=== PATIENT | male | born 1980 | race Caucasian/White ===

== ENCOUNTER → 2016-07-19 | Outpatient (CLI) | payer OTHER ==
[~2016-07-19] MED LIST: ALBU17IN INH; ALBU83IN INH; ARNU1INH IN; GABA300C3 PO; IBUP60TA PO; MELA5TAB14 PO; MOBI15TA PO; PROA1AER IN; TIZA4CAP3 PO; VITA500046 PO; VITA50TA43 PO
--- NOTE | 2016-08-11 01:04 | ECWPNPC ---
PATIENT NAME: MANSI ERNST : 1980 GENDER: MALE VISIT DATE: 07/19/2016 DISCHARGE DATE: 07/19/16 1113 VISIT LOCKED DATE TIME: PHYSICIAN: REFUGIO GRAMAJO RESOURCE: REFUGIO GRAMAJO REASON FOR APPOINTMENT 1. POST PROCEDURE-BACK HISTORY OF PRESENT ILLNESS HISTORY OF PRESENT ILLNESS: PAIN THE PATIENT DESCRIBES THE PAIN... FALL RISK SCREENING: SCREENING :NO FALLS IN THE PAST YEAR TODAY'S VISIT: NOTES: IS S/P LESB 06/22/16. HAS LEFT INGUINAL HERNIA REPAIR DONE 2 WEEKS AGO AND IS IN PROCESS OF HEALING. . CURRENT MEDICATIONS TAKING ALBUTEROL SULFATE (2.5 MG/3ML) 0.083% NEBULIZATION SOLUTION ONE APPLICATION INHALATION DAILY (PT UNSURE OF DOSE) TAKING VITAMIN D (CHOLECALCIFEROL) 5000 TABLET 1 TABLET ORALLY ONCE A DAY TAKING ARNUITY ELLIPTA 100 MCG/ACT AEROSOL POWDER BREATH ACTIVATED 1 PUFF INHALATION ONCE A DAY TAKING VENTOLIN HFA 90 MCG/ACT AEROSOL SOLUTION 2 PUFFS NEEDED INHALATION EVERY 4 HRS TAKING NORTRIPTYLINE HCL 10 MG CAPSULE 1 CAPSULE ORALLY ONCE A DAY TAKING CETIRIZINE HCL 10 MG TABLET 1 TABLET ORALLY ONCE A DAY TAKING AMBIEN 10 MG TABLET 1 TABLET AT BEDTIME NEEDED ORALLY ONCE A DAY TAKING TIZANIDINE HCL 4 MG CAPSULE 1 TO 2 CAPSULE NEEDED ORALLY BEFORE BEDTIME FOR SPASMS AND PAIN TAKING MELOXICAM 15 MG TABLET 1 TABLET ORALLY ONCE A DAY NEEDED FOR PAIN TAKING LYRICA 75 MG CAPSULE 1 CAPSULE ORALLY TWICE A DAY MDD=2, NOTES: HAS NOT GOTTEN IT YET MEDICATION LIST REVIEWED AND RECONCILED WITH THE PATIENT PAST MEDICAL HISTORY MIGRAINE ASTHMA DEGENERATIVE DISC DISEASE CEREBELLAR DISORDER ARTHRITIS ALLERGIES CATS: RED, WHEEZING, STUFFY SUN: BLISTERS CYMBALTA: PALPITATIONS, SWEATS: ALLERGY SOCIAL HISTORY GENERAL: TOBACCO USE ARE YOU A:CURRENT SMOKER LEARNING BARRIERS / SPECIAL NEEDS ORIENTED TO PLAN OF CARE: PATIENT, PAIN MANAGEMENT PATIENT, ORIENTED TO PLAN OF CARE: PATIENT, PAIN MANAGEMENT PATIENT. NEW PATIENT PAIN DIARY TODAY'S VISITNOTES FROM 0-10, WHAT LEVEL IS YOUR PAIN TODAY?0 PAIN CLINIC PFS, CLERGY, PUBLIC HEALTH REFERRALS PFS REFERRAL NEEDED?NO CLERGY REFERRAL NEEDED?NO PUBLIC HEALTH REFERRAL NEEDED?NO WAS THE PROVIDER NOTIFIED OF ANY PERTINENT INFO?NO PFS REFERRAL NEEDED?NO CLERGY REFERRAL NEEDED?NO PUBLIC HEALTH REFERRAL NEEDED?NO WAS THE PROVIDER NOTIFIED OF ANY PERTINENT INFO?NO REVIEW OF SYSTEMS CONSTITUTIONAL: ANY CHANGE IN YOUR MEDICAL CONDITION? NO . CHILLS NO . FEVER NO . INFECTION: DO YOU HAVE NEW INFECTIONS? NO . DO YOU HAVE HISTORY OF MRSA? NO . MUSCULOSKELETAL: ANY NEW PATTERNS OF PAIN OR NUMBNESS? NO . GASTROENTEROLOGY: ANY NEW CHANGE IN BOWEL CONTROL? NO . GENITOURINARY: ANY NEW CHANGE IN BLADDER CONTROL? NO . IS THERE A CHANCE YOU COULD BE ? NO . HEMATOLOGY/LYMPH: DO YOU TAKE ANY BLOOD THINNERS? (FOR EXAMPLE- COUMADIN, PLAVIX, AGGRENOX, PLATEL, PRADAXA, OR XARELTO) NO . WHEN WAS YOUR LAST DOSE? DATE: TIME: . NEUROLOGY: HAVE YOU FALLEN IN THE PAST 6 MONTHS? NO . ANY NEW EXTREMITY NUMBNESS OR WEAKNESS? NO . CARDIOLOGY: DO YOU HAVE A PACEMAKER OR DEFIBRILLATOR? NO . RESPIRATORY: HAVE YOU BEEN SICK IN THE PAST WEEK? NO . FEVER NO . FLU LIKE SYMPTOMS? NO . COUGH NO . INTEGUMENTARY: DO YOU HAVE ANY RASHES OR OPEN SORES? NO . ALLERGIC/IMMUNO: ARE YOU ALLERGIC TO SHELLFISH OR IV DYE? NO . ANY NEW ALLERGIES? NO . PSYCHIATRIC: DO YOU HAVE THOUGHTS OF HURTING YOURSELF OR SOMEONE ELSE? NO . ARE YOU ABUSED, NEGLECTED, OR IN AN UNSAFE ENVIRONMENT? NO . ENDOCRINOLOGY: ARE YOU DIABETIC? NO . OTHER: DO YOU NEED ANY PRESCRIPTIONS? YES . IF YES, PLEASE LIST: MELOXICAM, AMBIEN, AND TIZANIDINE . ANY NEW PROBLEMS WITH YOUR MEDICATIONS? NO . WHEN DID YOU LAST EAT? ____ . WHEN DID YOU LAST DRINK? ____ . WHAT DID YOU LAST DRINK? ____ . NAME OF PERSON DRIVING YOU HOME? ____ . DO YOU HAVE ANY OTHER QUESTIONS OR CONCERNS NO . REVIEWED BY: PROVIDER: REFUGIO JAFFE . VITAL SIGNS WT 222 LBS, HT 70 IN, BMI 31.85 INDEX, BP 119/80 MM HG, HR 98 /MIN, RR 16 /MIN, TEMP 98.9 F, OXYGEN SAT % 96, NA INITIALS TL 0950, REVIEWED BY: CS. EXAMINATION GENERAL EXAMINATION: PSYCHALERT , ORIENTED X 3 , APPROPRIATE MOOD AND AFFECT . LUNGS:FEW SCATTERED WHEEZES. HEART:HEART RATE REGULAR. MUSCULOSKELETAL:TENDER OVER BILATERAL LUMBAR FACETS AND ACROSS SACRUM. POINT TENDERNESS OVER LUMBAR SPINOUS PROCESSES AND LEFT SIJ REGION. , MUSCLE STRENGTH TESTING 5/5 BILATERAL LOWER EXTREMITIES. . ASSESSMENTS INTERVERTEBRAL DISC DISORDERS WITH RADICULOPATHY, LUMBOSACRAL REGION - M51.17 (PRIMARY) SPONDYLOSIS WITHOUT MYELOPATHY OR RADICULOPATHY, LUMBAR REGION - M47.816 TREATMENT INTERVERTEBRAL DISC DISORDERS WITH RADICULOPATHY, LUMBOSACRAL REGION REFILL AMBIEN TABLET, 10 MG, 1 TABLET AT BEDTIME NEEDED, ORALLY, ONCE A DAY, 30 DAY(S), 20, REFILLS 1 REFILL TIZANIDINE HCL CAPSULE, 4 MG, 1 TO 2 CAPSULE NEEDED, ORALLY, BEFORE BEDTIME FOR SPASMS AND PAIN, 30 DAY(S), 60, REFILLS 1 REFILL MELOXICAM TABLET, 15 MG, 1 TABLET, ORALLY, ONCE A DAY NEEDED FOR PAIN, 30 DAY(S), 30, REFILLS 1 NOTES: WALK TOLERATED. PROCEDURE CODES FA211 ESTABILISHED PATIENT [facility] CHARGE FOLLOW UP AUGUST ELECTRONICALLY SIGNED BY MAGDA SMILEY ON 08/10/2016 AT 10:28 AM EST DISCLAIMER : THIS IS A VISIT SUMMARY EXTRACTED FROM THE [employer] CHART. IT IS NOT A COPY OF THE [employer] PROGRESS NOTE. DELORIS
== END ==
LOC: M PAIN 10:00
PROVIDERS: ATTEND Nurse Practitioner Family
DX: M51.17 Intervertebral disc disorders with radiculopathy, lumbosacral region (principal); M47.816 Spondylosis without myelopathy or radiculopathy, lumbar region; Z79.899 Other long term (current) drug therapy; Z91.09 Other allergy status, other than to drugs and biological substances; Z88.8 Allergy status to other drugs, medicaments and biological substances

== ENCOUNTER → 2016-07-29 | Outpatient (CLI) | payer OTHER ==
--- NOTE | 2016-07-31 08:31 | REP ---
Lumbar spine seven views including lateral views with flexion and extension. Comparison is 12/23/2014. Vertebral body heights, interspacing and alignment are normal except for narrowing at L5 S1. This is unchanged and could be congenital variant or degenerative disc disease. No osteophytic formation is identified. There is no spondylolysis. There is no spondylolisthesis. There is no listhesis on the lateral views with flexion and extension. The pedicles, facets and sacroiliac articulations are unremarkable. Impression: Essentially negative lumbar spine except for L5 S1 disc space narrowing, congenital variant versus degenerative disc disease. Signed by Patrick French MD 07/29/2016 11:40 A
--- NOTE | 2016-07-31 08:31 | REP ---
Cervical spine eight views: There are no comparisons. Vertebral body heights, interspacing and alignment are normal C1 through C seven. T1 is obscured by the shoulders including on the "swimmer's view." There is no listhesis on flexion or extension. The facets are normally aligned. Prevertebral soft tissues are normal. There is no bony foraminal encroachment. Impression: Essentially negative cervical spine C1-C7. T1 is obscured by the shoulders Signed by Patrick French MD 07/29/2016 11:38 A
--- NOTE | 2016-07-31 11:55 | REP ---
MRI CERVICAL SPINE WITHOUT CONTRAST: 07/29/2016 CLINICAL HISTORY: Cervical spondylosis, chronic neck pain. COMPARISON: X-ray 07/29/2016. TECHNIQUE: Sagittal and axial T1 and T2 sequences were used. FINDINGS: Normal cervical lordosis is maintained. Vertebral body heights and marrow signal are normal throughout the cervical and upper thoracic spine. The disc water signal is mildly decreased at C3-4 and minimally decreased at all the other cervical levels. Disc height is slightly decreased at C4-5. The dens is intact. The cervicothoracic junction show ample subarachnoid space and there is no cervical cord intrinsic signal abnormality, syrinx, atrophy or mass. At C2-C3, no disc bulge herniation and no spinal or foraminal stenosis At C3-4, there is no disc herniation, spinal or foraminal stenosis At C4-5, there is a broad-based disc bulge flattening ventral thecal sac and thinning the subarachnoid space minimal narrowing the AP canal diameter is 9 mm noted. The right foramen is adequate. The left foramen shows some encroachment due to uncinate and facet spur. At C5-C6, I see no significant disc bulge or herniation and no spinal stenosis. The foramina are adequate on the right and marginally adequate on the left due to uncinate and facet spur. At C6-7 and C7-T1, there is no spinal or foraminal stenosis. IMPRESSION: 1. Mild cervical spondylosis at C4-5 with mild foraminal encroachment on the left, the right foramen adequate. 2. C5-6 without significant central canal stenosis with some marginal narrowing of the left foramen without nerve root compression. There are no other significant findings. Signed by Richie Coleman MD 07/31/2016 02:26 P
--- NOTE | 2016-07-31 12:00 | REP ---
MRI LUMBAR SPINE WITHOUT CONTRAST: 07/29/2016 COMPARISON: 02/23/2015 MRI, x-ray 07/29/2016. CLINICAL HISTORY: Low back pain. Bilateral radicular symptoms. TECHNIQUE: Sagittal and axial T1 and T2 sequences were provided. FINDINGS: Normal lumbar lordosis was maintained. There is disc space narrowing and loss of disc water signal at L5-S1 although mild. The other disc space heights and vertebral body heights were intact throughout. The conus terminates at the L1 level. T11-12, T12-L1, L1-2 and L2-3 disc levels show no bulge herniation and no spinal or foraminal stenosis. At L3-4, minimal mild diffuse disc bulge flattening ventral thecal sac but not causing spinal or foraminal stenosis At L4-5, there is a broad-based disc bulge flattening ventral thecal sac but not causing significant central canal or foraminal stenosis. There is minimal ligamentum and facet hypertrophy. All of this stable. At L5-S1, there is posterior osteophytic ridge and a central disc protrusion, similar to the previous study. It does not abut or displace. The central foramina show adequate perineural fat without encroachment. IMPRESSION: 1. There is a broad-based disc bulge with disc protrusion at the L5-S1 not causing significant central canal stenosis. S1 nerve roots are not displaced by the bulge and the foramina are adequate. 2. The L3-4 and L4-5 levels with minimal disc bulges without spinal or foraminal stenosis 3. The levels above remain unremarkable. Stable exam. Signed by Richie Coleman MD 07/31/2016 02:26 P
== END ==
LOC: M RAD 10:55
PROVIDERS: ATTEND Neurological Surgery
DX: M50.221 Other cervical disc displacement at C4-C5 level (principal); M51.26 Other intervertebral disc displacement, lumbar region; M47.892 Other spondylosis, cervical region; M47.896 Other spondylosis, lumbar region

== ENCOUNTER → 2016-09-04 | Outpatient (CLI) | payer OTHER ==
--- NOTE | 2016-09-05 02:39 | ECWPNPC ---
PATIENT NAME: MANSI ERNST : 1980 GENDER: MALE VISIT DATE: 09/04/2016 DISCHARGE DATE: 09/04/16 1056 VISIT LOCKED DATE TIME: PHYSICIAN: REFUGIO GRAMAJO RESOURCE: REFUGIO GRAMAJO REASON FOR APPOINTMENT 1. POST LE HISTORY OF PRESENT ILLNESS HISTORY OF PRESENT ILLNESS: PAIN THE PATIENT DESCRIBES THE PAIN... FALL RISK SCREENING: SCREENING :NO FALLS IN THE PAST YEAR TODAY'S VISIT: NOTES: RATES PAIN TODAY 4/10. DESCRIBES PAIN CONSTANT WITH INTERMITTANT SHOOTING. IS S/P LESB BUT THEN HAD OPEN HERNIA REPAIT WITH DR NAVARRO. ON 06/30/16. HE WANTS US TO DO ABD TRIGGERPOINTS/SCAR NEUROMA INJECTION . AFTER LESB HAD MS IV AND PERCOCETS FROM ABD SURGERY. COULD NOT MAKE GOOD JUDGEMENTS IN TERMS OF BACK. IS HAVING SHARP INTERMITTANT PAIN RADIATING TO MID THIGH LEFT SIDE. SAW DR AWAD IN JULY. MRI'S OF NECK AND LOW BACK COMPLETED. . CURRENT MEDICATIONS TAKING ALBUTEROL SULFATE (2.5 MG/3ML) 0.083% NEBULIZATION SOLUTION ONE APPLICATION INHALATION DAILY (PT UNSURE OF DOSE) TAKING VITAMIN D (CHOLECALCIFEROL) 5000 TABLET 1 TABLET ORALLY ONCE A DAY TAKING ARNUITY ELLIPTA 100 MCG/ACT AEROSOL POWDER BREATH ACTIVATED 1 PUFF INHALATION ONCE A DAY TAKING VENTOLIN HFA 90 MCG/ACT AEROSOL SOLUTION 2 PUFFS NEEDED INHALATION EVERY 4 HRS TAKING NORTRIPTYLINE HCL 10 MG CAPSULE 1 CAPSULE ORALLY ONCE A DAY TAKING CETIRIZINE HCL 10 MG TABLET 1 TABLET ORALLY ONCE A DAY TAKING LYRICA 75 MG CAPSULE 1 CAPSULE ORALLY TWICE A DAY MDD=2, NOTES: HAS NOT GOTTEN IT YET TAKING MELOXICAM 15 MG TABLET 1 TABLET ORALLY ONCE A DAY NEEDED FOR PAIN TAKING TIZANIDINE HCL 4 MG TABLET 1 TABLET NEEDED ORALLY BID TAKING AMBIEN 10 MG TABLET 1 TABLET AT BEDTIME NEEDED ORALLY ONCE A DAY MEDICATION LIST REVIEWED AND RECONCILED WITH THE PATIENT PAST MEDICAL HISTORY MIGRAINE ASTHMA DEGENERATIVE DISC DISEASE CEREBELLAR DISORDER ARTHRITIS ALLERGIES CATS: RED, WHEEZING, STUFFY SUN: BLISTERS CYMBALTA: PALPITATIONS, SWEATS: ALLERGY SOCIAL HISTORY GENERAL: TOBACCO USE ARE YOU A:NONSMOKER LEARNING BARRIERS / SPECIAL NEEDS ORIENTED TO PLAN OF CARE: PATIENT, PAIN MANAGEMENT PATIENT, ORIENTED TO PLAN OF CARE: PATIENT, PAIN MANAGEMENT PATIENT. NEW PATIENT PAIN DIARY TODAY'S VISITNOTES FROM 0-10, WHAT LEVEL IS YOUR PAIN TODAY?0 PAIN CLINIC PFS, CLERGY, PUBLIC HEALTH REFERRALS PFS REFERRAL NEEDED?NO CLERGY REFERRAL NEEDED?NO PUBLIC HEALTH REFERRAL NEEDED?NO WAS THE PROVIDER NOTIFIED OF ANY PERTINENT INFO?NO PFS REFERRAL NEEDED?NO CLERGY REFERRAL NEEDED?NO PUBLIC HEALTH REFERRAL NEEDED?NO WAS THE PROVIDER NOTIFIED OF ANY PERTINENT INFO?NO REVIEW OF SYSTEMS CONSTITUTIONAL: ANY CHANGE IN YOUR MEDICAL CONDITION? YES PT HAD AN OPEN HERNIA REPAIR 06/30/17, HAS A REFERRAL FROM DR. GIRON FOR TRIGGER POINTS AT INCISIONAL SITE . CHILLS NO . FEVER NO . INFECTION: DO YOU HAVE NEW INFECTIONS? NO . DO YOU HAVE HISTORY OF MRSA? NO . MUSCULOSKELETAL: ANY NEW PATTERNS OF PAIN OR NUMBNESS? YESPT REPORTS HE HAS INCREASED PAIN IN NECK AND INCREASED FREQUENCY AND INTENSITY OF HEADACHES. ALSO HAD AN OPEN HERNIA REPAIR 06/30 AND IS STILL EXPERIENCING INCISIONAL PAIN, SAW DR. GIRON WHO HAS REQUESTED TRIGGER POINTS FOR THE AREA. PT ALSO HAS CONTINUED BACK PAIN. . GASTROENTEROLOGY: ANY NEW CHANGE IN BOWEL CONTROL? NO . GENITOURINARY: ANY NEW CHANGE IN BLADDER CONTROL? NO . IS THERE A CHANCE YOU COULD BE ? NO . HEMATOLOGY/LYMPH: DO YOU TAKE ANY BLOOD THINNERS? (FOR EXAMPLE- COUMADIN, PLAVIX, AGGRENOX, PLATEL, PRADAXA, OR XARELTO) NO . WHEN WAS YOUR LAST DOSE? DATE: TIME: . NEUROLOGY: HAVE YOU FALLEN IN THE PAST 6 MONTHS? NO . ANY NEW EXTREMITY NUMBNESS OR WEAKNESS? NO . CARDIOLOGY: DO YOU HAVE A PACEMAKER OR DEFIBRILLATOR? NO . RESPIRATORY: HAVE YOU BEEN SICK IN THE PAST WEEK? NO . FEVER NO . FLU LIKE SYMPTOMS? NO . COUGH NO . INTEGUMENTARY: DO YOU HAVE ANY RASHES OR OPEN SORES? NO . ALLERGIC/IMMUNO: ARE YOU ALLERGIC TO SHELLFISH OR IV DYE? NO . ANY NEW ALLERGIES? NO . PSYCHIATRIC: DO YOU HAVE THOUGHTS OF HURTING YOURSELF OR SOMEONE ELSE? NO . ARE YOU ABUSED, NEGLECTED, OR IN AN UNSAFE ENVIRONMENT? NO . ENDOCRINOLOGY: ARE YOU DIABETIC? NO . OTHER: DO YOU NEED ANY PRESCRIPTIONS? YES MELOXICAM, TIZANIDINE, AMBIEN AND STILL HAS NOT RECEIVED APPROVAL FOR LYRICA . IF YES, PLEASE LIST: ____ . ANY NEW PROBLEMS WITH YOUR MEDICATIONS? NO . WHEN DID YOU LAST EAT? ____ . WHEN DID YOU LAST DRINK? ____ . WHAT DID YOU LAST DRINK? ____ . NAME OF PERSON DRIVING YOU HOME? ____ . DO YOU HAVE ANY OTHER QUESTIONS OR CONCERNS NO . REVIEWED BY: PROVIDER: REFUGIO JAFFE . VITAL SIGNS WT 226.4 LBS, HT 70 IN, BMI 32.48 INDEX, BP 126/84 MM HG, HR 82 /MIN, RR 18 /MIN, TEMP 97.9 F, OXYGEN SAT % 98%, SAFE IN ENV? (Y/N) YES, NA INITIALS SC 09:55, REVIEWED BY: ROBER. EXAMINATION GENERAL EXAMINATION: PSYCHALERT , ORIENTED X 3 , APPROPRIATE MOOD AND AFFECT . LUNGS:CLEAR TO AUSCULTATION BILATERALLY. HEART:HEART RATE REGULAR. ABDOMEN:WELL HEALED LEFT INGUINAL INCISION WITH SOME KELOID FORMATION WITH TRIGGERPOINTS AND SCAR NEUROMA PALPATED OVER LEFT LOW ABDOMEN. BOWEL SOUNDS ACTIVE IN ALL QUADRANTS. MUSCULOSKELETAL:TENDER OVER BILATERAL LUMBAR FACETS AND ACROSS SACRUM. POINT TENDERNESS OVER LUMBAR SPINOUS PROCESSES AND LEFT SIJ REGION. , MUSCLE STRENGTH TESTING 5/5 BILATERAL LOWER EXTREMITIES. TENDER POINTS ABOVE AND BELOW THE WAIST, BOTH SIDES OF THE BODY CONSISTANT WITH FIBROMYALGIA. 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 MYALGIA - M79.1 FIBROMYALGIA - M79.7 TREATMENT INTERVERTEBRAL DISC DISORDERS WITH RADICULOPATHY, LUMBOSACRAL REGION REFILL LYRICA CAPSULE, 75 MG, 1 CAPSULE, ORALLY, TWICE A DAY MDD=2, 30 DAY(S), 60, REFILLS 2 REFILL MELOXICAM TABLET, 15 MG, 1 TABLET, ORALLY, ONCE A DAY NEEDED FOR PAIN, 30 DAY(S), 30, REFILLS 1 REFILL TIZANIDINE HCL TABLET, 4 MG, 1 TABLET NEEDED, ORALLY, BID, 30 DAY(S), 60 TABLET, REFILLS 4 REFILL AMBIEN TABLET, 10 MG, 1 TABLET AT BEDTIME NEEDED, ORALLY, ONCE A DAY, 30 DAY(S), 20, REFILLS 1 INJECTION ANESTHETIC SCAR NEUROMAWALREFUGIO MONSIVAIS 09/04/2016 10:44:46 AM > WITH ULTRASOUND REFUGIO GRAMAJO 09/04/2016 10:44:46 AM > WITH ULTRASOUND REFUGIO GRAMAJO 09/04/2016 10:45:05 AM > LEFT ABD INCISION - TOP AREA CLINICAL NOTES: HAS PREVIOUSLY BEEN ON GABAPENTIN 600 MG TID WITHOUT IMPROVEMENT IN GENERALIZIED NEUROPATHIC PAIN. NORTRIPTYLINE HAS BEEN SUBOPTIMAL. HAD ALLERGIC RESPONSE TO CYMBALTA. WE ARE REQUESTING LYRICA TO IMPROVE PAIN CONTROL. PT HAS SEVERE RHEUMATOID ARTHRITIS AND FIBROMYALGIA. PREVENTIVE MEDICINE PAIN CLINIC TEACHING: PROCEDURE TEACHING REVIEWED PRE-PROCEDURE INSTRUCTIONS AND TEACHING FOR SCAR NEUROMA INJECTIONS. PROCEDURE CODES FA211 ESTABILISHED PATIENT [facility] CHARGE DISPOSITION & COMMUNICATION FOLLOW UP AFTER INJECTION ELECTRONICALLY SIGNED BY MAGDA SMILEY ON 09/04/2016 AT 06:31 PM EST DISCLAIMER : THIS IS A VISIT SUMMARY EXTRACTED FROM THE [employer] CHART. IT IS NOT A COPY OF THE [employer] PROGRESS NOTE. LOYD
== END ==
LOC: M PAIN 09:40
PROVIDERS: ATTEND Nurse Practitioner Family
DX: Z09 Encounter for follow-up examination after completed treatment for conditions other than malignant neoplasm (principal); G89.29 Other chronic pain; M51.17 Intervertebral disc disorders with radiculopathy, lumbosacral region; D36.15 Benign neoplasm of peripheral nerves and autonomic nervous system of abdomen; J45.909 Unspecified asthma, uncomplicated; M19.90 Unspecified osteoarthritis, unspecified site; M79.1 Myalgia; M79.7 Fibromyalgia; Z79.899 Other long term (current) drug therapy; Z91.048 Other nonmedicinal substance allergy status; Z88.8 Allergy status to other drugs, medicaments and biological substances

== ENCOUNTER → 2016-10-25 | Outpatient (CLI) | payer OTHER ==
[~2016-10-25] MED LIST changes: +BUPIVACAINE HCL 0.25% 10 ML VIAL As Ordered ONE; +BUPIVACAINE HCL 0.25% 30 ML VIAL As Ordered ONE; +GABA-282 PO; -GABA300C3 PO; +TRIAMCINOLONE ACETONIDE SUSP 40 MG/ML VIAL (J3301) As Ordered ONE; +diazePAM 5 MG TAB As Ordered ONE; +oxyCODONE 5MG TAB As Ordered ONE
--- NOTE | 2016-11-06 00:10 | ECWPNPC ---
PATIENT NAME: MANSI ERNST : 1980 GENDER: MALE VISIT DATE: 10/25/2016 DISCHARGE DATE: 10/25/16 1422 VISIT LOCKED DATE TIME: PHYSICIAN: HENRIQUE WOLFE RESOURCE: HENRIQUE WOLFE REASON FOR APPOINTMENT 1. SCAR NEUROMA HISTORY OF PRESENT ILLNESS HISTORY OF PRESENT ILLNESS: PAIN THE PATIENT DESCRIBES THE PAIN... FALL RISK SCREENING: SCREENING :NO FALLS IN THE PAST YEAR CURRENT MEDICATIONS TAKING ALBUTEROL SULFATE (2.5 MG/3ML) 0.083% NEBULIZATION SOLUTION ONE APPLICATION INHALATION DAILY (PT UNSURE OF DOSE), NOTES: 10-25-16 07 TAKING VITAMIN D (CHOLECALCIFEROL) 5000 TABLET 1 TABLET ORALLY ONCE A DAY, NOTES: 10-24-162199 TAKING ARNUITY ELLIPTA 100 MCG/ACT AEROSOL POWDER BREATH ACTIVATED 1 PUFF INHALATION ONCE A DAY, NOTES: 10-25-16599 TAKING VENTOLIN HFA 90 MCG/ACT AEROSOL SOLUTION 2 PUFFS NEEDED INHALATION EVERY 4 HRS, NOTES: 10-25-16599 TAKING NORTRIPTYLINE HCL 10 MG CAPSULE 1 CAPSULE ORALLY ONCE A DAY, NOTES: 10-24-162199 TAKING CETIRIZINE HCL 10 MG TABLET 1 TABLET ORALLY ONCE A DAY, NOTES: 10-24-16 1400 TAKING MELOXICAM 15 MG TABLET 1 TABLET ORALLY ONCE A DAY NEEDED FOR PAIN, NOTES: 10-24-162199 TAKING AMBIEN 10 MG TABLET 1 TABLET AT BEDTIME NEEDED ORALLY ONCE A DAY, NOTES: 10-22-162199 NOT-TAKING LYRICA 75 MG CAPSULE 1 CAPSULE ORALLY TWICE A DAY MDD=2 NOT-TAKING TIZANIDINE HCL 4 MG TABLET 1 TABLET NEEDED ORALLY BID MEDICATION LIST REVIEWED AND RECONCILED WITH THE PATIENT PAST MEDICAL HISTORY MIGRAINE ASTHMA DEGENERATIVE DISC DISEASE CEREBELLAR DISORDER ARTHRITIS ALLERGIES CATS: RED, WHEEZING, STUFFY SUN: BLISTERS CYMBALTA: PALPITATIONS, SWEATS: ALLERGY SURGICAL HISTORY HERNIA SURGURY JUN 2015 SOCIAL HISTORY GENERAL: TOBACCO USE ARE YOU A:CURRENT SMOKER HOW MANY CIGARETTES A DAY DO YOU SMOKE?5 OR LESS PATIENT COUNSELED ON THE DANGERS OF TOBACCO USE AND URGED TO QUIT:10/25/2016 ARE YOU INTERESTED IN QUITTING?THINKING ABOUT QUITTING COUNSELED THE PATIENT ON SMOKING CESSATION, EDUCATION [id number]/26/2017 PAIN CLINIC PFS, CLERGY, PUBLIC HEALTH REFERRALS CLERGY REFERRAL NEEDED?NO WAS THE PROVIDER NOTIFIED OF ANY PERTINENT INFO?NO PFS REFERRAL NEEDED?NO PUBLIC HEALTH REFERRAL NEEDED?NO PATIENT: ____. REVIEW OF SYSTEMS CONSTITUTIONAL: ANY CHANGE IN YOUR MEDICAL CONDITION? NO . CHILLS NO . FEVER NO . INFECTION: DO YOU HAVE NEW INFECTIONS? NO . DO YOU HAVE HISTORY OF MRSA? NO . MUSCULOSKELETAL: ANY NEW PATTERNS OF PAIN OR NUMBNESS? NO . GASTROENTEROLOGY: ANY NEW CHANGE IN BOWEL CONTROL? NO . GENITOURINARY: ANY NEW CHANGE IN BLADDER CONTROL? NO . IS THERE A CHANCE YOU COULD BE ? NO . HEMATOLOGY/LYMPH: DO YOU TAKE ANY BLOOD THINNERS? (FOR EXAMPLE- COUMADIN, PLAVIX, AGGRENOX, PLATEL, PRADAXA, OR XARELTO) NO . WHEN WAS YOUR LAST DOSE? DATE: TIME: . NEUROLOGY: HAVE YOU FALLEN IN THE PAST 6 MONTHS? NO . ANY NEW EXTREMITY NUMBNESS OR WEAKNESS? NO . CARDIOLOGY: DO YOU HAVE A PACEMAKER OR DEFIBRILLATOR? NO . RESPIRATORY: HAVE YOU BEEN SICK IN THE PAST WEEK? NO . FEVER NO . FLU LIKE SYMPTOMS? NO . COUGH NO . INTEGUMENTARY: DO YOU HAVE ANY RASHES OR OPEN SORES? NO . ALLERGIC/IMMUNO: ARE YOU ALLERGIC TO SHELLFISH OR IV DYE? NO . ANY NEW ALLERGIES? NO . PSYCHIATRIC: DO YOU HAVE THOUGHTS OF HURTING YOURSELF OR SOMEONE ELSE? NO . ARE YOU ABUSED, NEGLECTED, OR IN AN UNSAFE ENVIRONMENT? NO . ENDOCRINOLOGY: ARE YOU DIABETIC? NO . OTHER: DO YOU NEED ANY PRESCRIPTIONS? NO . IF YES, PLEASE LIST: ____ . ANY NEW PROBLEMS WITH YOUR MEDICATIONS? NO . WHEN DID YOU LAST EAT? ____ . WHEN DID YOU LAST DRINK? ____ . WHAT DID YOU LAST DRINK? ____ . NAME OF PERSON DRIVING YOU HOME? ____ . DO YOU HAVE ANY OTHER QUESTIONS OR CONCERNS NO . REVIEWED BY: PROVIDER: . VITAL SIGNS WT 226 LBS, HT 70 IN, BMI 32.42 INDEX, BP 134/83 MM HG, HR 114 /MIN, RR 18 /MIN, TEMP 98.7 F, OXYGEN SAT % 97%, NA INITIALS SC 11:28, REVIEWED BY: KG. ASSESSMENTS SCAR NEUROMA. TREATMENT OTHERS NOTES: PRE PROCEDURE DIAGNOSIS: SCAR NEUROMA AT LEFT INGUINAL AREA POST PROCEDURE DIAGNOSIS: SCAR NEUROMA AT LEFT INGUINAL AREA PROCEDURE: INJECTION AT SCAR NEUROMA SURGEON: DR. HENRIQUE WOLFE. PROPERTY AND CASUALTY INSURANCE AGENT: NONE. ANESTHESIA: LOCAL. PRE PROCEDURE NOTE THE PATIENT HAS A HISTORY OF CHRONIC PAIN AT THE LEFT ILIOINGUINAL AREA. I EVALUATED THE PATIENT AND REVIEWED THE CHART. I WENT OVER THE RISKS, ALTERNATIVES, AND BENEFITS ASSOCIATED WITH THIS PROCEDURE. THE PATIENT WOULD LIKE TO PROCEED AND GIVE CONSENT TO PERFORMED THE PROCEDURE. THE PATIENT DENIES UNEXPLAINABLE WEIGHT LOSS, FEVER, CHILLS, OR NEW CHANGES IN URINARY OR BOWEL CONTROL. DESCRIPTION OF PROCEDURE THE PATIENT WAS BROUGHT TO THE PROCEDURE ROOM AND PLACED IN THE SUPINE POSITION. THE AREA WAS CLEANED WITH CHLOROPREP. THE PROCEDURE WAS DONE USING ASEPTIC STERILE TECHNIQUE. I CHECKED LATERALITY AND THE LEVEL WHERE THE PROCEDURE WAS GOING TO BE PERFORMED WITH THE PATIENT AND THE SUPPORTING STAFF AT THE MOMENT OF THE TIME OUT IN THE PROCEDURE ROOM. USING A 25-GAUGE NEEDLE, THE LEFT INGUINAL SCAR WAS INJECTED WITH A TOTAL OF 40 ML OF BUPIVACAINE 0.25% AND KENALOG 40 MG. THERE WAS NO EVIDENCE OF BLOOD, PARESTHESIA OR CEREBROSPINAL FLUID DURING THE PROCEDURE. THE PATIENT WAS SENT TO THE RECOVERY ROOM. THE PATIENT WAS MOVING THE EXTREMITIES AND DOING WELL. THERE WAS NO COMPLICATION DURING THE PROCEDURE. POST PROCEDURE NOTE THE PATIENT WILL BE SEEN IN A FOLLOW UP IN THE NEXT FEW WEEKS. INSTRUCTIONS WERE GIVEN, QUESTIONS WERE ANSWERED, AND THE PATIENT EXPRESSED UNDERSTANDING AND AGREES WITH THE PLAN.I, GOYO RAZA, DOCUMENTED THE ABOVE INFORMATION ACTING A SCRIBE FOR DR. WOLFE. I HAVE REVIEWED THE ABOVE DOCUMENT, WRITTEN BY GOYO CRAWFORD AND I VERIFY THAT IT IS ACCURATE. DISPOSITION & COMMUNICATION FOLLOW UP 3 WEEKS ELECTRONICALLY SIGNED BY HENRIQUE WOLFE MD ON 11/05/2016 AT 05:59 PM EDT DISCLAIMER : THIS IS A VISIT SUMMARY EXTRACTED FROM THE [employer] CHART. IT IS NOT A COPY OF THE [employer] PROGRESS NOTE. DELORIS
== END ==
LOC: M PAIN 11:00
PROVIDERS: ATTEND Anesthesiology
DX: L90.5 Scar conditions and fibrosis of skin (principal); M47.816 Spondylosis without myelopathy or radiculopathy, lumbar region; M79.1 Myalgia; M47.817 Spondylosis without myelopathy or radiculopathy, lumbosacral region; M51.17 Intervertebral disc disorders with radiculopathy, lumbosacral region; M51.16 Intervertebral disc disorders with radiculopathy, lumbar region; D36.15 Benign neoplasm of peripheral nerves and autonomic nervous system of abdomen; Z79.899 Other long term (current) drug therapy; F17.210 Nicotine dependence, cigarettes, uncomplicated; J30.81 Allergic rhinitis due to animal (cat) (dog) hair and dander; L56.2 Photocontact dermatitis [berloque dermatitis]; Z88.8 Allergy status to other drugs, medicaments and biological substances
CPT/HCPCS: 11900; J3301

== ENCOUNTER 2017-01-04 11:17 | Emergency (ER) | payer OTHER ==
[~2017-01-04] VITALS: Ht 177.8 cm; Wt 105.5 kg
[~2017-01-04 11:17] MED LIST changes: -BUPIVACAINE HCL 0.25% 10 ML VIAL As Ordered ONE; -BUPIVACAINE HCL 0.25% 30 ML VIAL As Ordered ONE; -MELA5TAB14 PO; +MELA5TAB17 PO; -PROA1AER IN; +PROAAER10 IN; -TRIAMCINOLONE ACETONIDE SUSP 40 MG/ML VIAL (J3301) As Ordered ONE; -diazePAM 5 MG TAB As Ordered ONE; -oxyCODONE 5MG TAB As Ordered ONE
[2017-01-04] MEDS ORDERED: BACL10TA2 (12:00)
[2017-01-04] MEDS ORDERED: OXYC-517 (12:00)
[2017-01-04] MEDS ORDERED: ZOLP10TA2 (12:00)
[2017-01-04] MEDS ORDERED: CETI10TA (12:00)
[2017-01-04] MEDS ORDERED: MELO15TA4 (12:00)
[2017-01-04] MEDS ORDERED: NORT10CA2 (12:00)
--- NOTE | 2017-01-04 13:26 | REP ---
Clinical: Trauma. Technique: AP, lateral, bilateral oblique and sunrise views right knee . Findings: The osseous structures and joint spaces are intact and normal for age. There is no evidence for acute fracture or dislocation. No joint effusion is appreciated. Surrounding soft tissues are unremarkable. No subcutaneous emphysema or radiodense foreign body. Impression: Age appropriate right knee examination. No acute fracture or dislocation. Signed by Bertin Spann MD 01/04/2017 01:18 P
[2017-01-04] MEDS ORDERED: KETOROLAC 60 MG/2 ML VIAL (J1885) IM ONE (13:30)
[2017-01-04 14:01] VITALS: BP 164/110
== END 2017-01-04 14:07 | disposition home or self-care (01) ==
LOC: M ED 11:17
DX: S80.01XA Contusion of right knee, initial encounter (principal); W22.8XXA Striking against or struck by other objects, initial encounter; Y92.099 Unspecified place in other non-institutional residence as the place of occurrence of the external cause; Y93.89 Activity, other specified; Y99.9 Unspecified external cause status

== ENCOUNTER 2017-01-08 13:52 | Emergency (ER) | payer OTHER ==
[~2017-01-08] VITALS: Ht 177.8 cm; Wt 105.2 kg
[~2017-01-08 13:52] MED LIST changes: +BACL10TA2; +CETI10TA; +MELO15TA4; +NORT10CA2; +OXYC-517; +ZOLP10TA2
--- NOTE | 2017-01-08 15:02 | REP ---
Right lower extremity Duplex Doppler venous ultrasound: Real time compression and duplex Doppler interrogation of the right lower extremity deep venous system is performed. The right common femoral, superficial femoral and popliteal veins are fully compressible with transducer pressure and demonstrate normal spontaneous and phasic flow, without evidence of deep venous thrombosis. Impression: No evidence of deep venous thrombosis of the right lower extremity femoral popliteal venous system. Signed by Patrick Alexander MD 01/08/2017 02:54 P
[2017-01-08 15:21] VITALS: BP 168/118
== END 2017-01-08 15:23 | disposition home or self-care (01) ==
LOC: M ED 13:52
DX: M79.89 Other specified soft tissue disorders (principal); S80.01XA Contusion of right knee, initial encounter; X58.XXXA Exposure to other specified factors, initial encounter; Y93.89 Activity, other specified; Y99.9 Unspecified external cause status; Y92.89 Other specified places as the place of occurrence of the external cause

== ENCOUNTER → 2019-05-13 | Outpatient (CLI) | payer MEDICARE ==
[~2019-05-13] MED LIST changes: -GABA-282 PO; +GABA-843 PO; +IBUP600T42 PO; -IBUP60TA PO; -MELA5TAB17 PO; +MELA5TAB31 PO; +MELO15TA28; -MELO15TA4; +TIZA4CAP PO; -TIZA4CAP3 PO
--- NOTE | 2019-05-13 18:10 | REP ---
CT abdomen and pelvis without IV or oral contrast: History: Ventral hernia without obstruction. No comparison CT study. 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 The lung bases are clear on axial CT images except for a partially visualized pulmonary nodular opacity at least 6 mm in diameter seen at the uppermost cut in the imaging field of view. This merits further evaluation. CT chest recommended. No pleural effusion is seen. There is moderate diffuse fatty infiltration of the liver. The liver is enlarged with a midclavicular vertical span of 20.6 cm. No focal liver lesion is seen. There are calcified gallstones in the gallbladder. No evidence of biliary ductal dilation is seen. No pancreatic abnormality is observed. There is a small accessory splenule. Spleen is otherwise unremarkable. No adrenal lesion is seen on either side. The kidneys are morphologically intact. There is a large ventral hernia transmitting large and small bowel loops along with omental and mesenteric fat. The ventral hernia defect measures 9.8 cm in right to left dimension by 9.5 cm in craniocaudal span. It appears to be just supraumbilical. No other abdominal wall defect is appreciated. Small and large bowel loops are otherwise unremarkable. Normal appendix is seen in the right lower quadrant adjacent to the anterior abdominal wall outside of the ventral hernia. No bony destructive lesion is appreciated. Impression: Large ventral hernia as described above. Hepatomegaly with moderate diffuse fatty infiltration of the liver. Cholelithiasis. Electronically Signed by Galindo Zapata MD 05/13/2019 06:56 P
== END ==
LOC: M RAD 14:35
PROVIDERS: ATTEND Surgery Trauma Surgery
DX: K43.9 Ventral hernia without obstruction or gangrene (principal); K80.80 Other cholelithiasis without obstruction; R16.0 Hepatomegaly, not elsewhere classified

== ENCOUNTER → 2019-12-10 | Outpatient (REF) | LOC: M LAB 16:02 ==